=== PATIENT | male | born 1970 | race Caucasian/White ===

== ENCOUNTER 2019-03-26 21:31 | Emergency (ER) | payer SELFPAY ==
[~2019-03-26] VITALS: Ht 172.7 cm; Wt 81.7 kg
[~2019-03-26 21:31] MED LIST: AZITHROMYCIN250 MG PO; BENADRYL25 MG PO; CYCLOBENZAPRINE5 MG PO; ECHINACEA80 MG PO; MELOXICAM7.5 MG PO; NORCO 5-325 TA1 EACH PO; OTC COLD MEDS; PREDNISONE10 MG PO; PROVENTIL HFA6.7 GM INH; VENTOLIN HFA18 GM INH; ZITHROMAX250 MG PO
[2019-03-26] MEDS ORDERED: ZOFRAN4 MG PO (23:43)
== END 2019-03-26 23:54 | disposition home or self-care (01) ==
LOC: ED 21:31
DX: K52.9 Noninfective gastroenteritis and colitis, unspecified (principal); F17.200 Nicotine dependence, unspecified, uncomplicated; Z88.5 Allergy status to narcotic agent; Z79.899 Other long term (current) drug therapy
CPT/HCPCS: 74177; 80053; 81001; 83690; 83735; 85025; 99284-25; Q9967

== ENCOUNTER 2019-09-17 08:42 | Emergency (ER) | payer OTHER ==
[~2019-09-17] VITALS: Ht 172.7 cm; Wt 81.7 kg
[~2019-09-17 08:42] MED LIST changes: +ZOFRAN4 MG PO
[2019-09-17] MEDS ORDERED: ADVIL200 MG PO (08:57)
== END 2019-09-17 10:56 | disposition home or self-care (01) ==
LOC: ED 08:42
DX: M70.88 Other soft tissue disorders related to use, overuse and pressure other site (principal); F17.200 Nicotine dependence, unspecified, uncomplicated; Z88.5 Allergy status to narcotic agent
CPT/HCPCS: 73110; 99283-25

== ENCOUNTER 2019-11-30 10:31 | Emergency (ER) | payer SELFPAY ==
[~2019-11-30] VITALS: Ht 172.7 cm; Wt 89.4 kg
[~2019-11-30 10:31] MED LIST changes: +ADVIL200 MG PO
== END 2019-11-30 12:40 | disposition home or self-care (01) ==
LOC: ED 10:31
DX: K59.00 Constipation, unspecified (principal); F17.200 Nicotine dependence, unspecified, uncomplicated
CPT/HCPCS: 74022; 99284-25; 99406